=== PATIENT | male | born 1945 | race Caucasian/White ===

== ENCOUNTER → 2018-07-28 | Outpatient (CLI) | payer MEDICARE ==
[~2018-07-28] MED LIST: ACYC800T99 PO; AMOX-556 PO; CIP500 PO; CIT20 PO; CLIN300C99 PO; CLON-1 PO; HYDR-3087 PO; IBUP800T37 PO; IBUPROFEN; LOM PO; LOR5/325 PO; LORA-630 PO; MOMR ENA; PANT20TA26 PO; PRE10 PO; QUE25 PO; REGADENOSON 0.4 MG/5 ML SYR ONE; SIMV-42 PO
== END ==
LOC: NUC 00:43
PROVIDERS: ATTEND Nurse Practitioner Family
DX: Z02.9 Encounter for administrative examinations, unspecified (principal)
CPT/HCPCS: J2785

== ENCOUNTER → 2018-08-11 | Outpatient (CLI) | payer MEDICARE ==
--- NOTE | 2018-08-13 12:06 | RT STRESS TEST REPORT ---
FACILITY: [facility] PATIENT NAME: IFEANYI BLACKWELL : [id number] MR: [id number] V: [id number] EXAM DATE: ORDERING PHYSICIAN: ELISA NORTON TECHNOLOGIST: Matthew Acquisition Time: 2018-08-11 09:36:06 Total Exercise Time: 00:01:00 Test Indications: Screening for CAD Medications: see list Protocol: LEXISCAN Max HR: 096 BPM 66% of Pred: 145 BPM Max BP: 146/096 mmHG Max Work Load: 1.0 METS Impression: No EKG changes to suggest ischemia Nuclear medicine report to follow Confirmed by KRISTIAN CURIEL ([id number]) on 08/13/2018 12:06:10 PM Referred By: Elisa Norton Overread By: KRISTIAN CURIEL
--- NOTE | 2018-08-17 12:05 | RADIOLOGY IMAGING REPORT ---
FACILITY: [facility] PATIENT NAME: Iggy Reynolds : 1945 MR: [id number] V: [id number] EXAM DATE: [id number] ORDERING PHYSICIAN: NIGEL ZAMBRANO TECHNOLOGIST: Location: [facility] [place] Patient: Iggy Reynolds : 1945 Visit/Account:[id number] Date of Sevice: 08/11/2018 EXAMINATION: Single isotope SPECT imaging with regadenoson infusion and gated SPECT imaging. DATE OF EXAMINATION: 08/11/2018. DATE OF INTERPRETATION: 08/17/2018. REQUESTING PHYSICIAN: NIGEL ZAMBRANO. INDICATION: The patient is a 73-year-old male evaluated for carotid artery disease. PROCEDURE: After informed consent the patient received an intravenous injection of 11.5 mCi of Tc-99 m sestamibi followed at an appropriate time interval by rest imaging. The patient then subsequently received an intravenous infusion of 0.4 mg of regadenoson per protocol without complication. Resting heart rate was 64 bpm with a peak heart rate of 96 bpm. Blood pressure at rest was 146 / 96 and fol lowing infusion was 146 / 96. Baseline EKG demonstrates sinus rhythm. There were no EKG changes of ischemia following infusion. Symptoms were nonspecific. The patient then received an intravenous in jection of 29.4 mCi of Tc-99m sestamibi followed by stress imaging. RAW DATA: Examination of the summed raw data revealed a adequate quality study. MYOCARDIAL PERFUSION: The tomographic images demonstrate normal perfusion in all myocardial segments . No transient ischemic dilation. GATED IMAGES: The gated images demonstrate normal LV ejection fraction. LVEF greater than 70%. Ember l regional wall motion. IMPRESSION: 1. Nondiagnostic pharmacologic stress ECG 2. Normal myocardial perfusion scan. 3. Normal LV systolic function; LVEF greater than 70%. 4. Based on the results of this exam, the patient appears to be at low risk for near term future card iovascular events. Intermediate risk long-term based on need for pharmacologic stress agent as oppose d to exercise. Report Dictated By: Tez Whaley at 08/17/2018 11:57 AM Report E-Signed By: Tez Whaley at 08/17/2018 12:00 PM WSN:[id number]
== END ==
LOC: NUC 00:46
PROVIDERS: ATTEND Nurse Practitioner Family
DX: I65.29 Occlusion and stenosis of unspecified carotid artery (principal)
CPT/HCPCS: 78452; 93017; A9500; J2785

== ENCOUNTER 2019-01-31 11:40 | Emergency (ER) | payer MEDICARE ==
[~2019-01-31 11:40] MED LIST changes: -REGADENOSON 0.4 MG/5 ML SYR ONE
[2019-01-31 11:49] VITALS: BP 163/98
--- NOTE | 2019-01-31 11:51 | ER Report ---
History and Physical Time Seen By MD: 11:51 HPI/ROS CHIEF COMPLAINT: Crush injury of right great toe HISTORY OF PRESENT ILLNESS: 74-year-old male patient presents to emergency room with complaint of a crush injury to the right great toe. Patient states that he was working outside. He was using a 9 foot railroad tie for gardening. He states that it fell and landed on his right great toe. Patient states that he did have some pain, as well as a little bit of bleeding. He states that has ceased at this time. Patient denies any numbness or tingling. Patient does have a history of neuropathy, but does not have any pain at this time. Patient states he is not taking any medication for this. He denies any nausea, vomiting or diarrhea. REVIEW OF SYSTEMS: Respiratory: No cough, no dyspnea. Cardiovascular: No chest pain, no palpitations. Gastrointestinal: No vomiting, no abdominal pain. Musculoskeletal: As noted above Allergies: Coded Allergies: sulfamethoxazole (Verified Allergy, Mild, ANXIETY, 01/31/19) trimethoprim (Verified Allergy, Mild, ANXIETY, 01/31/19) citalopram (Verified Adverse Reaction, Mild, 01/31/19) quetiapine (Verified Adverse Reaction, Mild, 01/31/19) Home Meds Reported Medications Linaclotide (Linzess) 72 Mcg Capsule 01/31/19 Clonazepam (KLONOPIN) 1 Mg Tablet, 1 MG PO BID, #7 TAB TAKE ONE TABLET BY MOUTH TWICE A DAY 07/31/14 Pantoprazole Sodium (PROTONIX) 20 Mg Tablet.dr, 40 MG PO DAILY, TAB.SR 07/31/14 Simvastatin (Zocor) 20 Mg Tablet, 20 MG PO DAILY 10/27/11 Discontinued Scripts Clindamycin Hcl (CLINDAMYCIN HCL) 300 Mg Capsule, 300 MG PO Q6H, #40 CAPSULE Prov:PETER BAUER DO 06/19/16 Ibuprofen (IBUPROFEN) 800 Mg Tablet, 1 TAB PO Q8H for PAIN, #60 TAB Prov:PETER BAUER DO 06/19/16 Hydrocodone Bit/Acetaminophen (HYDROCODON-ACETAMINOPHEN 5-325) 1 Each Tablet, 1- 2 EACH PO Q6H for PAIN, #20 TAB Prov:PETER BAUER DO 06/19/16 Mometasone Furoate (NASONEX) 17 Gm [place], 17 GM RADHA DAILY, #1 SPRAY Prov:PETER BAUER DO 08/02/14 Past Medical/Surgical History Patient has a past medical history of hypertension, hyperlipidemia, inflammation of stomach lining, hard hearing, shingles, depression. Patient has a surgical history of tonsillectomy, right shoulder surgery, [place], EGD, appendectomy. Patient has a family medical history of CAD. Reviewed Nurses Notes: Yes Hx Smoking: Yes Smoking Status: Former Smoker Hx Substance Use Disorder: No Hx Alcohol Use: No Constitutional Vital Sign - Last 24 Hours 01/31/19 11:49 Temp 98.2 Pulse 93 Resp 16 B/P (MAP) 163/98 Pulse Ox 92 Physical Exam General Appearance: The patient is alert, has no immediate need for airway protection and no current signs of toxicity. Respiratory: Chest is non tender, lungs are clear to auscultation. Cardiac: regular rate and rhythm Gastrointestinal: Abdomen is soft and non tender, no masses, bowel sounds normal. Musculoskeletal: Neck: Neck is supple and non tender. Extremities have full range of motion and are non tender. Patient has obvious crush injury to the toe, there is some bleeding at the distal end of the toenail. There is no swelling, bruising. Patient has no tenderness to palpation. Skin: No rashes or lesions. DIFFERENTIAL DIAGNOSIS: After history and physical exam differential diagnosis was considered for fracture, contusion, open fracture. Medical Decision Making EKG/Imaging Imaging FOOT 3 VIEWS RIGHT COMPARISON: None. HISTORY: crush injury TECHNIQUE: 3 views of the right foot were obtained without weightbearing technique FINDINGS: BONES: No significant arthropathy, fracture, dislocation, or significant osseous lesion. Alignment is within normal limits for non-weightbearing technique. Mild chronic bony hypertrophy of the medial/dorsal margin of the first metatarsal head. Metatarsal bases are appropriately aligned. Calcaneal height is preserved SOFT TISSUES: Moderate vascular calcifications at the ankle. Soft tissue swelling in the lateral forefoot. EFFUSION: None suggested. OTHER: Negative. IMPRESSION: Soft tissue swelling in the right lateral forefoot. No acute fracture or malalignment. Report Dictated By: Donny Moran at 01/31/2019 12:36 PM Report E-Signed By: Donny Moran at 01/31/2019 12:37 PM ED Course/Re-evaluation ED Course Patient was admitted to an exam room, history and physical were obtained. Differential diagnoses were considered. On examination lungs are clear, heart is regular, abdomen soft nontender. Patient does have some blood noted at the distal end of the left great toe. The toenail itself does not seem to be loose. Appears that the crush injury was more on the great toe. An x-ray was done of the left foot. There are no fractures noted. As a result we will go ahead and discharge patient home at this time. He is to go ahead and soak his foot. He is to ice and elevate as needed. He can take Tylenol or ibuprofen for pain. He is to follow-up with his primary care provider with any concerns. As of this point time I do not see any reason to remove the toenail. I discussed this with the patient who verbalized understanding and agreement with plan. Decision to Disposition Date: January 31, 2019 Decision to Disposition Time: 12:53 Depart Departure Latest Vital Signs Vital Signs Date Time Temp Pulse Resp B/P (MAP) Pulse Ox O2 Delivery O2 Flow Rate FiO2 01/31/19 11:49 98.2 93 16 163/98 92 Impression: Primary Impression: Crush injury of foot Condition: Improved Disposition: HOME OR SELF-CARE Referrals: NIGEL ZAMBRANO (PCP) Patient Instructions: Crush Injury (ED) Additional Instructions: Increase fluid intake. Get plenty of rest. Ice the foot. Elevate when not active. I anticipate that the toenail will fall off. Return to the ER if condition worsens. Take Tylenol or Ibuprofen as needed for pain. Problem Qualifiers Primary Impression: Crush injury of foot Encounter type: initial encounter Laterality: right Qualified Codes: S97.81XA - Crushing injury of right foot, initial encounter SUKI ALSTON January 31, 2019 11:51
[2019-01-31] MEDS ORDERED: LINA72CA (11:58)
--- NOTE | 2019-01-31 12:42 | RADIOLOGY IMAGING REPORT ---
FACILITY: [facility] PATIENT NAME: Iggy Reynolds : 1945 MR: [id number] V: [id number] EXAM DATE: ORDERING PHYSICIAN: SUKI ALSTON TECHNOLOGIST: Location: [facility] Patient: Iggy Reynolds : 1945 Visit/Account:[id number] Date of Sevice: 01/31/2019 FOOT 3 VIEWS RIGHT COMPARISON: None. HISTORY: crush injury TECHNIQUE: 3 views of the right foot were obtained without weightbearing technique FINDINGS: BONES: No significant arthropathy, fracture, dislocation, or significant osseous lesion. Alignment is within normal limits for non-weightbearing technique. Mild chronic bony hypertrophy of the medial /dorsal margin of the first metatarsal head. Metatarsal bases are appropriately aligned. Calcaneal he ight is preserved SOFT TISSUES: Moderate vascular calcifications at the ankle. Soft tissue swelling in the lateral for efoot. EFFUSION: None suggested. OTHER: Negative. IMPRESSION: Soft tissue swelling in the right lateral forefoot. No acute fracture or malalignment. Report Dictated By: Donny Moran at 01/31/2019 12:36 PM Report E-Signed By: Donny Moran at 01/31/2019 12:37 PM WSN:[id number]
== END 2019-01-31 13:08 | disposition home or self-care (01) ==
LOC: ER 11:52
DX: S97.81XA Crushing injury of right foot, initial encounter (principal)
CPT/HCPCS: 99283